=== PATIENT | female | born 1970 | race Caucasian/White ===

== ENCOUNTER 2024-08-02 09:16 | Emergency (ER) | payer BC, SELFPAY ==
[2024-08-02] VITALS (8 sets, daily range): BP systolic 116–146; BP diastolic 64–115; PULSE 64–79; RESP 16–24; TEMP 36.4–37.2; O2SAT 94–99; BMI 34.9
--- NOTE | 2024-08-02 09:18 | RAD_ITS ---
STUDY: X-RAY - RIGHT WRIST REASON FOR EXAM: Female, 54 years old. Injury TECHNIQUE: 3 view(s) of the wrist were obtained. COMPARISON: None. FINDINGS: Normal visualized distal radius and ulna. Normal radiocarpal articulation. Normal distal radioulnar articulation. Normal carpal bones. Normal carpal articulations. Normal carpometacarpal articulation of the thumb. Normal second through fifth carpometacarpal articulations. Normal visualized metacarpal bones. Soft tissue swelling. RAD/Wrist min 3 Views IMPRESSION: Soft tissue swelling. Electronically Signed: Jaime Anaya MD at 10:06 EST ,
--- NOTE | 2024-08-02 09:18 | RAD_ITS ---
STUDY: X-RAY - RIGHT ANKLE REASON FOR EXAM: Female, 54 years old. Pain following injury. TECHNIQUE: 3 view(s) of the ankle. COMPARISON: None. FINDINGS: Oblique fracture of the distal fibula with lateral displacement of the distal fracture fragment. Avulsion fracture of the medial malleolus. Nondisplaced fracture of the posterior malleolus of the distal tibia. Disruption of the ankle mortise. Normal visualized talus and calcaneus. The visualized subtalar, talonavicular, calcaneocuboid and tarsal articulations are normal. Soft tissue swelling. RAD/Ankle min 3 Views IMPRESSION: Oblique fracture of the distal portion of the fibula with lateral displacement of the distal fracture fragment as well as avulsion fracture of the medial malleolus and posterior malleolus of the distal tibia with disruption of the ankle mortise. Soft tissue swelling. Electronically Signed: Jaime Anaya MD at 10:07 EST ,
--- NOTE | 2024-08-02 09:19 | ED.VIS.FALL ---
HPI HPI - Fall History of Present Illness Chief Complaint: Fall Informant: patient and EMS Narrative Narrative: 54-year-old female was on a 4 foot stepladder hanging [place] for [place] inside of her house, when she lost balance falling off the ladder landing on the floor below on her right lower extremity, with her ankle twisting and snapping, felt like she broke it immediately and she has been having pain ever since. She states she also partially caught herself with her right outstretched hand, she has some mild pain in her right radial wrist, but nothing compared to her right ankle. 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 It has still been sore even before the injury today. Today she did not injure anything else. PFSH PFSH Medical History no medical history no medical history Home Medications ?Medication ?Instructions ?Recorded ?Last Taken ?Type celecoxib 200 mg capsule 200 mg PO BID 08/02/24 Unknown History gabapentin 300 mg capsule 300 mg PO TID 08/02/24 Unknown History oxycodone-acetaminophen 5 mg-325 1 tab PO Q6H PRN PRN Pain 3 days 08/02/24 Unknown Rx mg tablet #12 TABLETS Allergy/AdvReac Type Severity Reaction Status Date / Time bee venom protein (honey Allergy Intermediate Anaphylaxis Verified 08/02/24 09:34 bee) (bees) Surgical History H/O right wrist surgery Social History Smoking Status: Current every day smoker tobacco type: cigarettes ROS ROS ED Constitutional Constitutional ED: Denies chills or fever(s) Musculoskeletal Musculoskeletal: Reports extremity pain; Denies neck pain Integumentary Denies Abrasions, rash or wounds Neurologic Neurologic: Denies paresthesias or weakness EXAM Physical Exam Const Vital Signs: 08/02/24 09:17 08/02/24 09:29 08/02/24 10:06 Temperature 97.5 F L 97.8 F Temperature Source Oral Pulse Rate 79 79 Pulse Rate [1 (Initial Baseline)] Pulse Rate [2] Respiratory Rate 18 24 H Respiratory Rate [1 (Initial Baseline)] Respiratory Rate [2] Respiratory Effort Normal Non-Labored Respiratory Depth Normal Respiratory Pattern Normal Blood Pressure 134/93 H 146/64 H Blood Pressure [1 (Initial Baseline)] Blood Pressure [2] Blood Pressure Mean 106 Pulse Ox 96 94 Oxygen Delivery Method Room Air Room Air Nasal Cannula Oxygen Delivery Method [1 (Initial Baseline)] Oxygen Delivery Method [2] Oxygen Flow Rate (L/min) 4 Oxygen Flow Rate (L/min) [1 (Initial Baseline)] EtCo2 (Normal 35-45 , high quality CPR 10-20 & ROSC>/=40mmHg 32 EtCo2 (Normal 35-45 , high quality CPR 10-20 & ROSC>/=40mmHg [1 (Initial Baseline)] EtCo2 (Normal 35-45 , high quality CPR 10-20 & ROSC>/=40mmHg [2] 08/02/24 10:14 08/02/24 10:18 08/02/24 10:18 Temperature Temperature Source Pulse Rate Pulse Rate [1 (Initial Baseline)] 79 Pulse Rate [2] 72 Respiratory Rate Respiratory Rate [1 (Initial Baseline)] 16 Respiratory Rate [2] 16 Respiratory Effort Respiratory Depth Respiratory Pattern Blood Pressure Blood Pressure [1 (Initial Baseline)] 146/64 H Blood Pressure [2] 131/79 H Blood Pressure Mean Pulse Ox Oxygen Delivery Method Room Air Oxygen Delivery Method [1 (Initial Baseline)] Nasal Cannula Oxygen Delivery Method [2] Room Air Oxygen Flow Rate (L/min) Oxygen Flow Rate (L/min) [1 (Initial Baseline)] 4 EtCo2 (Normal 35-45 , high quality CPR 10-20 & ROSC>/=40mmHg 24 30 EtCo2 (Normal 35-45 , high quality CPR 10-20 & ROSC>/=40mmHg [1 (Initial Baseline)] 24 EtCo2 (Normal 35-45 , high quality CPR 10-20 & ROSC>/=40mmHg [2] 24 08/02/24 10:23 08/02/24 10:31 08/02/24 11:17 Temperature 98.9 F Temperature Source Oral Pulse Rate 78 Pulse Rate [1 (Initial Baseline)] Pulse Rate [2] Respiratory Rate 16 Respiratory Rate [1 (Initial Baseline)] Respiratory Rate [2] Respiratory Effort Respiratory Depth Respiratory Pattern Blood Pressure 141/78 H Blood Pressure [1 (Initial Baseline)] Blood Pressure [2] Blood Pressure Mean 99 Pulse Ox 98 Oxygen Delivery Method Room Air Room Air Room Air Oxygen Delivery Method [1 (Initial Baseline)] Oxygen Delivery Method [2] Oxygen Flow Rate (L/min) Oxygen Flow Rate (L/min) [1 (Initial Baseline)] EtCo2 (Normal 35-45 , high quality CPR 10-20 & ROSC>/=40mmHg 32 35 EtCo2 (Normal 35-45 , high quality CPR 10-20 & ROSC>/=40mmHg [1 (Initial Baseline)] EtCo2 (Normal 35-45 , high quality CPR 10-20 & ROSC>/=40mmHg [2] Positive well nourished and well developed General Appearance ED: well developed and NAD Neck full ROM and supple Resp normal respiratory effort and clear to auscultation bilaterally Cardio regular rate, regular rhythm and no murmurs GI non-tender and non-distended Back/Spine normal to inspection Extremity Extremity Narrative: Full range of motion of the right wrist, neurovascular intact distally. She does have some mild tenderness in the snuffbox where there is a well-healed surgical scar as well as the distal radius. With regard to the right ankle, there is a gross deformity but it is not valgus or varus, and is diffusely tender, she has a 2-3-second cap refill but I am not able to feel a dorsalis pedis pulse while in the splint. No tenderness in the toes or forefoot/midfoot, the knee, or the hip. All other joints range fully without any difficulty. All compartments are soft and nondistended of the right upper and lower extremities. Neuro oriented x3, no focal motor deficits and no sensory deficits noted Sensorium / Orientation: alert Psych mental status grossly normal and thought process normal Skin no wounds Rashes: no rashes MDM MDM MDM Narrative Medical decision making narrative: Patient was in a lot of pain during my initial evaluation and had not been given any pain medication by EMS so I had nursing place an IV and provide Zofran and fentanyl before getting her right foot/ankle out of the splint. Three-view x-ray series of the right ankle on my interpretation shows a trimalleolar fracture dislocation with the tibia anterior on the talus. See the procedure note, after seeing these x-rays was verified that she had been n.p.o. for more than 6 hours except for just a cup of coffee couple hours ago, and appropriate for sedation for reduction and splinting which was performed uneventfully. The patient awaken feeling less pain and is neurovascularly intact. Three-view x-ray series of the right wrist on my interpretation negative for acute fracture. While x-ray was in the room performing postreduction x-rays I was present as well, the patient said that she was in a lot more pain. 2 view postreduction x-rays on my interpretation show persistent subluxation of the tibia anterior on the talus, so while x-ray was in the room I gently pick the patient's foot up by her toes and put a little bit of posterior pressure on her tibia, and she had less pain feeling a lot better. Another postreduction lateral of my interpretation shows resolution of the subluxation. Therefore we tightened her splint up a little bit and she is doing well neurovascular intact distally. She was offered admission but prefers to go home. She recently had seen Dr. Ward with orthopedics at [facility] for her wrist, and actually has an appointment with him today. I called and discussed with him. She actually was able to get an appointment at 4 PM today, and did well with crutches, so she is going to go home with a prescription for pain medication and follow-up with him in the office. Radiography Diagnostic Testing: Clinical Impression(s) from Imaging Studies Ankle X-Ray 08/02/24 09:18 IMPRESSION: Oblique fracture of the distal portion of the fibula with lateral displacement of the distal fracture fragment as well as avulsion fracture of the medial malleolus and posterior malleolus of the distal tibia with disruption of the ankle mortise. Soft tissue swelling. Electronically Signed: Jaime Anaya MD at 10:07 EST , Wrist X-Ray 08/02/24 09:18 IMPRESSION: Soft tissue swelling. Electronically Signed: Jaime Anaya MD at 10:06 EST , Ankle X-Ray 08/02/24 10:12 IMPRESSION: Satisfactory reduction with residual asymmetry of the ankle mortise. Electronically Signed: Jaime Anaya MD at 10:45 EST , Management Discussion w/another healthcare provider: Truck Bench Mechanic (kayce Ward) Procedures Upper Extremity Splints Upper Extremity Splint: Orthoglass (Short leg posterior stirrup with sugar-tong) Splint Fabrication: Fabricated Location: Right (Neurovascularly intact distally after placement to right ankle) Procedural Sedation 1 (Initial Baseline): Consent Signed: Yes Any Problems With Anesthesia: No You/Your family experience fever (hyperthermia) w/anesthesia: No Sedation medication: Etomidate Dose: 10 Route: IV Total Moderate Sedation Units: 7 Maliampati Score: Class II ASA Classification: I Comment:: On monitor with prophylactic nasal cannula oxygenation and IV fluids, end-tidal CO2 monitoring, airway equipment at the bedside. Tolerated well with no complications. Other Procedures Procedure(s): Close reduction fracture dislocation right ankle: After prophylactically given fentanyl 50 mcg in addition to sedation as above, I performed closed reduction with palpable clunk with good feedback, pushing the tibia posteriorly on the talus, attempting to splint in anatomic position. Cap refill 2 seconds and 1+ dorsalis pedis pulse on reexamination after reduction. Neurologically intact as well. Discharge Plan Triage Chief Complaint: Fall ED Provider: Adrian Wilosn Dx/Rx/DC Orders Clinical Impression: Closed fracture dislocation of right ankle, Closed displaced trimalleolar fracture of right ankle, Sprain of right wrist, Fall from ladder Instructions: Using Crutches: [id number], ED Ankle Fracture Prescriptions: New oxycodone-acetaminophen 5-325 mg tablet 1 tab PO Q6H PRN PRN (Reason: Pain) 3 Days Qty: 12 0RF No Action celecoxib 200 mg capsule 200 mg PO BID gabapentin 300 mg capsule 300 mg PO TID Referrals: Adrian Ward MD [Non-Staff] - 08/02/24 4:00 pm Print Language: Azeri Disposition Disposition: Home, Self Care
[2024-08-02] MEDS: fentaNYL 100 MCG/2 ML Ampul 50 MCG IV ×2 (09:33→10:06)
[2024-08-02] MEDS: Ondansetron 4 MG/2 ML Vial IV (09:33)
[2024-08-02] MEDS: Etomidate 20 MG/10 ML Vial 10 MG IV (10:06)
--- NOTE | 2024-08-02 10:12 | RAD_ITS ---
STUDY: X-RAY - RIGHT ANKLE REASON FOR EXAM: Female, 54 years old. Postreduction -- port TECHNIQUE: 2 view(s) of the ankle. COMPARISON: Comparison is made with prior study done earlier in the day. FINDINGS: Post reduction images in a cast. There is satisfactory reduction with residual asymmetry of the ankle mortise. RAD/Ankle 2 Views IMPRESSION: Satisfactory reduction with residual asymmetry of the ankle mortise. Electronically Signed: Jaime Anaya MD at 10:45 EST ,
--- NOTE | 2024-08-02 14:13 | CM.ED ---
Social work Reason for referral: support/no PCP listed Referral source: case find This SW identified patient?s lack of a PCP listed and patient?s presentation to the ED with an ankle injury, resulting in a broken ankle. SW entered patient?s room, introducing self and role at [facility]. Patient was lying in bed, alert and oriented. Patient?s [id number] at bedside and patient gave permission to speak in front of her [id number]. Patient stated she was hanging [place] directions and ?did it good.? Patient stated her ankle was broken, but she was choosing to be discharged due to having a follow up for her wrist with Dr. Ward already scheduled for today. Patient stated she did have a PCP, but patient could not remember his name. Patient stated her PCP will be retiring soon but the PCP?s office will be automatically giving patient a new PCP, so patient denied resources at this time. Patient stated there were no other needs she could identify at this time. Nevaeh Purcell, HARDBOARD SUPERVISOR, UPHOLSTERY TRIMMER
== END 2024-08-02 11:52 | disposition home or self-care (01) ==
LOC: ED 10:57
PROVIDERS: Emergency Provider Emergency Medicine; Visit Provider Emergency Medicine
DX: S82.851A Displaced trimalleolar fracture of right lower leg, initial encounter for closed fracture (principal); S63.91XA Sprain of unspecified part of right wrist and hand, initial encounter; F17.210 Nicotine dependence, cigarettes, uncomplicated; W11.XXXA Fall on and from ladder, initial encounter
CPT/HCPCS: 73110; 73600; 73610; 96374; 96375; 96376; 99285; A4216; J2405